=== PATIENT | female | born 1990 | race African-American/Black ===

== ENCOUNTER 2017-09-26 08:27 | Outpatient (CLI) | payer OTHER ==
--- NOTE | 2017-09-26 11:11 | ULT ---
OB ULTRASOUND: HISTORY: Size and dates, anatomy. FINDINGS: Real-time imaging of the pelvis shows a single viable intrauterine in a vertex presentation . Cervical canal length is 4 cm. heart rate is 145 b.p.m. The placenta is posterior in locat ion without evidence of previa. Review of anatomy shows no anomalies detected. Amniotic fluid is adequate for this stage of . measurements are as follows: BPD 5.1 cm, 21 weeks 4 days Head Circumference 20 cm, 22 weeks 1 day Abdominal Circumference 16.7 cm, 21 weeks 5 days Femur Length 3.7 cm, 21 weeks 6 days IMPRESSION: 1. Single viable intrauterine in a vertex presentation with overall measurements correspon ding to a gestational age of 21 weeks 5 days, estimated date of delivery 02/01/18. 2. Placenta which is posterior in location without evidence of previa. POS: [facility]
== END 2017-09-26 08:28 | disposition home or self-care (01) ==
LOC: ULT 08:27
PROVIDERS: ATTEND Family Medicine
DX: Z34.92 Encounter for supervision of normal pregnancy, unspecified, second trimester (principal); Z3A.20 20 weeks gestation of pregnancy
CPT/HCPCS: 76805

== ENCOUNTER 2018-01-30 06:55 | Inpatient (IN) | payer OTHER ==
[2018-01-30 07:51] VITALS: BMI 33.3
[2018-01-30] MEDS ORDERED: FLU VACC QS2017-18 36 mo. & older 0.5 ML SYRINGE IM ONE (08:00)
[2018-01-30] MEDS ORDERED: Promethazine HCl 25 MG/ML VIAL IM PRN (08:04)
[2018-01-30] MEDS ORDERED: LR / Pitocin 40 units/1000 ml 1,000 ML IV PRN (08:04)
[2018-01-30] MEDS ORDERED: Acetaminophen/Codeine 30-300mg Tablet PO PRN (08:04)
[2018-01-30] MEDS ORDERED: Acetaminophen 500 MG TAB PO PRN (08:04)
[2018-01-30] MEDS ORDERED: HYDROcodone/Acetaminophen 5/325 mg Tablet PO PRN ×3 (08:04→23:45)
[2018-01-30] MEDS ORDERED: Lidocaine 1% (PF) 30 ML VIAL SC PRN (08:04)
[2018-01-30] MEDS ORDERED: Ibuprofen 800 MG TAB PO PRN (08:04)
[2018-01-30] MEDS ORDERED: Ondansetron HCl/PF 4 MG/2 ML Vial IVP PRN (08:04)
[2018-01-30] MEDS ORDERED: Penicillin G Potassium 5 MILL.UNITS in Sodium Chloride 0.9% 100 ML IVPB SCH (08:15)
[2018-01-30] MEDS: Lactated Ringer's 1,000 ML IV SCH ×2 (08:30→15:31)
[2018-01-30 09:15] LABS: Hemoglobin 10.8 g/dL (12.0-16.0); Mean Corpuscular HGB CONC 32.9 g/dL (32.0-36.0); Mean Corpuscular Hemoglobin 29.3 pg (27.0-31.0); Mean Corpuscular Volume 89.1 fl (81.0-99.0); Platelet Count 216 thou/uL (130-400); RBC Distribution Width 12.1 % (11.5-14.5)
[2018-01-30 09:55] LABS: HBSAg Index 0.33 S/CO (0-0.99); Hep B Surf Ag Non-Reactive S/CO (NonReactive)
[2018-01-30 09:56] LABS: Syphilis Antibody Nonreactive (Nonreactive); Syphilis Antibody Index 0.07 S/CO (<1.00 Non-Reactive)
[2018-01-30] MEDS: Penicillin G 2.5 MILL.units 2.5 MILL.UNITS in Premix Bag 1 BAG IVPB SCH ×2 (12:51→18:01)
[2018-01-30] MEDS ORDERED: Bupivacaine 0.5% 20 ML, Fentanyl 400 MCG in Sodium Chloride 0.9% 72 ML EPIDURAL SCH ×2 (14:30→16:00)
[2018-01-30] MEDS ORDERED: ePHEDrine/0.9% NaCl/PF SYRINGE 50 mg/10 ml SLOW IVP PRN (15:57)
[2018-01-30] MEDS ORDERED: Acetaminophen 325 MG TAB PO PRN (15:57)
[2018-01-30] MEDS ORDERED: diphenhydrAMINE 50 MG/ML VIAL IVP PRN (15:57)
[2018-01-30] MEDS ORDERED: Lactated Ringer's 500 ML IV PRN (15:57)
[2018-01-30] MEDS ORDERED: Eucerin (Mineral Oil/Petrolatum,White) 30 gm Jar TOP PRN (15:57)
[2018-01-30] MEDS ORDERED: Naloxone HCl 0.4 mg/ml Vial IVP PRN (15:57)
[2018-01-30] MEDS ORDERED: Communication Order-Pharmacy FS SCH (16:00)
[2018-01-30] MEDS ORDERED: Fentanyl 4mcg/Marcaine 0.1% Cassette 100 ML EPIDURAL SCH (16:00)
[2018-01-30] MEDS ORDERED: Lidocaine 1% (PF) 30 ML VIAL ONE (16:49)
[2018-01-30] MEDS ORDERED: LR / Pitocin 40 units/1000 ml 1,000 ML ONE ×2 (16:49→20:42)
--- NOTE | 2018-01-30 17:28 | OP ---
DATE OF PROCEDURE: 01/30/2018 PREOPERATIVE DIAGNOSIS: Term . POSTOPERATIVE DIAGNOSIS: Term . PROCEDURE PERFORMED: Spontaneous vaginal delivery. ANESTHESIA: Epidural. SURGEON: Keven Conner M.D. PROCEDURE: This 27-year-old female, taken to delivery room, completed pushing. The patient pr epped and draped sterilely. Delivered baby from the vertex presentation. Baby did breathe and cry v igorously upon delivery. The baby was bulb suctioned clear. The cord was clamped and cut to put, th e placenta was delivered spontaneously intact. Mother and baby did very well. Estimated blood loss was 350 mL.
[2018-01-31] MEDS: Ibuprofen 800 MG TAB PO SCH ×3 (06:34→21:17)
[2018-01-31] MEDS: Prenatal Vitamin 1 TAB PO SCH (10:31)
[2018-01-31] MEDS: Docusate Calcium (SURFAK) 240 MG CAP PO SCH ×2 (10:32→21:17)
[2018-02-01] MEDS: Ibuprofen 800 MG TAB PO SCH (05:58)
[2018-02-01 08:05] VITALS: BP 116/66; TEMP 98.3
[2018-02-01] MEDS: Prenatal Vitamin 1 TAB PO SCH (09:12)
[2018-02-01] MEDS: Docusate Calcium (SURFAK) 240 MG CAP PO SCH (09:13)
== END 2018-02-01 12:30 | disposition home or self-care (01) | DRG 775 ==
LOC: L&D/OP 06:55 → L&D 07:57 → 3SW 20:58
PROVIDERS: ADMIT Family Medicine; ATTEND Family Medicine
PROC: 10E0XZZ Delivery of Products of Conception, External Approach (ICD-10-PCS; principal; 2018-01-30)
PROC: 10907ZC Drainage of Amniotic Fluid, Therapeutic from Products of Conception, Via Natural or Artificial Opening (ICD-10-PCS; 2018-01-30)
DX: O99.824 Streptococcus B carrier state complicating childbirth (principal); Z37.0 Single live birth; Z3A.39 39 weeks gestation of pregnancy; Z87.891 Personal history of nicotine dependence
CPT/HCPCS: 36415; 51702; 85027; 86780; 87340; 99285; J1200; J2001; J2540; J3010; J3490; J7050

== ENCOUNTER 2019-11-25 21:36 | Inpatient (IN) | payer OTHER ==
[2019-11-25] MEDS ORDERED: HYDROcodone/Acetaminophen 5/325 mg Tablet PO PRN (22:39)
[2019-11-25] MEDS ORDERED: Butorphanol Tartrate 1 MG/ML VIAL SLOW IVP PRN (22:39)
[2019-11-25] MEDS ORDERED: NS / Oxytocin 40 units/1000ml 1,000 ML IV PRN (22:39)
[2019-11-25] MEDS ORDERED: hydrALAZINE 20 MG/ML VIAL SLOW IVP PRN (22:39)
[2019-11-25] MEDS ORDERED: Ondansetron PF 4 MG/2 ML Vial IVP PRN (22:39)
[2019-11-25] MEDS ORDERED: Lidocaine 1% (PF) 30 ML VIAL SC PRN (22:39)
[2019-11-25] MEDS ORDERED: Ibuprofen 800 MG TAB PO PRN (22:39)
[2019-11-25] MEDS ORDERED: Lactated Ringer's 1,000 ML IV SCH ×2 (22:45)
[2019-11-25 23:09] LABS: Mean Corpuscular HGB CONC 34.7 g/dL (32.0-36.0); Mean Corpuscular Hemoglobin 31.5 pg (27.0-31.0); Mean Corpuscular Volume 90.8 fL (78.0-98.0); Mean Platelet Volume 7.4 fL (7.4-10.4); Platelet Count 253 thou/uL (130-400); Red Blood Cell (RBC) Count 3.49 mill/uL (4.20-5.40); White Blood Cell (WBC) Count 12.4 thou/uL (4.8-10.8)
[2019-11-25 23:11] VITALS: BMI 35.0
[2019-11-25 23:47] LABS: Syphilis Antibody Nonreactive (Nonreactive); Syphilis Antibody Index 0.06 S/CO (<1.00 Non-Reactive)
[2019-11-25 23:48] LABS: HBSAg Index 0.15 S/CO (0-0.99); Hep B Surf Ag Non-Reactive S/CO (NonReactive)
[2019-11-26] MEDS: NS / Oxytocin 40 units/1000ml 1,000 ML IV SCH ×2 (02:33→03:34)
[2019-11-26] MEDS ORDERED: Ondansetron PF 4 MG/2 ML Vial IVP PRN (02:58)
[2019-11-26] MEDS ORDERED: Lanolin Ointment 7 GM TUBE TOP PRN (02:58)
[2019-11-26] MEDS ORDERED: Milk Of Magnesia 30 ML UDCUP PO PRN (02:58)
[2019-11-26] MEDS ORDERED: hydrALAZINE 20 MG/ML VIAL SLOW IVP PRN (02:58)
[2019-11-26] MEDS ORDERED: Benzocaine-Menthol 82.5 ML CAN TOP PRN (02:58)
[2019-11-26] MEDS ORDERED: Bisacodyl 10 MG SUPP PR PRN (02:58)
[2019-11-26] MEDS ORDERED: Ibuprofen 800 MG TAB PO PRN (03:28)
[2019-11-26] MEDS: Ibuprofen 800 MG TAB PO SCH ×3 (05:49→21:55)
[2019-11-26] MEDS: HYDROcodone/Acetaminophen 5/325 mg Tablet PO PRN ×2 (06:20→21:55)
[2019-11-26] MEDS ORDERED: FLU VACC QS2019-20(6MOS UP)/PF 60 MCG/0.5 ML SYRINGE IM ONE (09:00)
[2019-11-26] MEDS ORDERED: Adacel (T-DAP) 0.5 ML SYRINGE IM ONE (09:00)
[2019-11-26] MEDS: Ferrous Sulfate 325 MG TAB PO SCH ×2 (09:17→17:10)
[2019-11-26] MEDS: Docusate Calcium (SURFAK) 240 MG CAP PO SCH ×2 (09:34→21:55)
[2019-11-26] MEDS: Prenatal Vitamin 1 TAB PO SCH (09:34)
--- NOTE | 2019-11-26 09:52 | DN ---
DATE OF PROCEDURE: 11/26/2019 The patient is a 29-year-old female, who delivered a female on 11/26/2019 at 0227 hours by uncomplicated term spontaneous vaginal delivery. Gestational age was 39 weeks and 2 days. Apgars were 8 and 9. Weight was 3583 g. Placenta delivered spontaneously followed by Pitocin infusion. There was a small first-degree laceration that did not need repair due to spontaneous hemostasis. Quantitative blood loss [address] Mukherjee is the delivering physician. Counts were correct. Complications none. Mother and baby are stable in the room in the immediate . Job ID: [id number]
[2019-11-27 05:38] LABS: Hemoglobin 10.1 g/dL (12.0-16.0)
[2019-11-27] MEDS: Ibuprofen 800 MG TAB PO SCH ×3 (06:11→21:18)
[2019-11-27] MEDS: Ferrous Sulfate 325 MG TAB PO SCH ×2 (08:22→16:41)
--- NOTE | 2019-11-27 08:25 | PDOC.PP ---
Post Progress Note Post Day #: 1 Subjective: doing well, no concerns PO intake tolerated: yes Flatus: yes Ambulation: yes Vital Signs (12 hours) Temp Pulse Resp BP 11/27/19 02:00 98.5 F 56 L 18 99/58 L Weight Weight 198 lb - Physical Examination General: NAD Respiratory: non-labored breathing Abdominal: no distention Fundus firm & at: below umb Extremities: negative homans (B) Neurological: no gross focal deficits Psychiatric: A&Ox3, normal affect Result Diagrams: 11/27/19 05:29 Additional Labs: Post Labs Blood Type A POSITIVE 11/25/19 23:00 Hep Bs Antigen Non-Reactive S/CO (NonReactive) 11/25/19 23:00 (1) Term delivered Code(s): O80 - ENCOUNTER FOR FULL-TERM UNCOMPLICATED DELIVERY Status: Acute (2) Vaginal delivery Code(s): O80 - ENCOUNTER FOR FULL-TERM UNCOMPLICATED DELIVERY Status: Acute - Assessment/Plan Uncomplicated term delivery. DC today.
[2019-11-27] MEDS: Docusate Calcium (SURFAK) 240 MG CAP PO SCH ×2 (08:27→21:18)
[2019-11-27] MEDS: Prenatal Vitamin 1 TAB PO SCH (08:27)
[2019-11-28] MEDS: Ibuprofen 800 MG TAB PO SCH (06:30)
--- NOTE | 2019-11-28 08:12 | PDOC.PP ---
Post Progress Note Post Day #: 2 Subjective: Pt reports she was notified at 1900 she couldnt DC because baby apt wasn't confirmed. Will call more providers today to arrange apt. PO intake tolerated: yes Flatus: yes Ambulation: yes Weight Weight 198 lb - Physical Examination General: NAD Respiratory: non-labored breathing Abdominal: no distention Fundus firm & at: below umb Neurological: no gross focal deficits Psychiatric: A&Ox3, normal affect Result Diagrams: 11/28/19 05:23 Additional Labs: Post Labs Blood Type A POSITIVE 11/25/19 23:00 Hep Bs Antigen Non-Reactive S/CO (NonReactive) 11/25/19 23:00 (1) Term delivered Code(s): O80 - ENCOUNTER FOR FULL-TERM UNCOMPLICATED DELIVERY Status: Acute (2) Vaginal delivery Code(s): O80 - ENCOUNTER FOR FULL-TERM UNCOMPLICATED DELIVERY Status: Acute - Assessment/Plan PPD2 doing well, no concerns, plan for DC today when baby DC.
[2019-11-28 08:38] VITALS: BP 115/59; TEMP 98
[2019-11-28] MEDS: Prenatal Vitamin 1 TAB PO SCH (08:49)
[2019-11-28] MEDS: Docusate Calcium (SURFAK) 240 MG CAP PO SCH (08:49)
[2019-11-28] MEDS: Ferrous Sulfate 325 MG TAB PO SCH (08:50)
== END 2019-11-28 12:45 | disposition home or self-care (01) | DRG 807 ==
LOC: L&D/OP 21:36 → L&D 11-26 02:58 → 3SW 11-26 05:21
PROVIDERS: ADMIT Obstetrics & Gynecology; ATTEND Obstetrics & Gynecology
PROC: 10907ZC Drainage of Amniotic Fluid, Therapeutic from Products of Conception, Via Natural or Artificial Opening (ICD-10-PCS; principal; 2019-11-26)
PROC: 10E0XZZ Delivery of Products of Conception, External Approach (ICD-10-PCS; 2019-11-26)
DX: O70.0 First degree perineal laceration during delivery (principal); Z37.0 Single live birth; Z3A.39 39 weeks gestation of pregnancy
CPT/HCPCS: 36415; 85014; 85018; 85027; 86780; 86850; 86900; 86901; 87340; 99285; J2001; J2405